=== PATIENT | male | born 1980 | race Caucasian/White ===

== ENCOUNTER 2016-05-09 17:01 | Observation (INO) | payer BC ==
[2016-05-09] MEDS ORDERED: SALINE 3% 15 ML NEB TX ONE (18:28)
[2016-05-09] MEDS ORDERED: TUSSIONEX PENNKINETIC SUSP PO PRN (18:47)
[2016-05-09] MEDS ORDERED: RESTORIL CAP 30 MG PO PRN (18:47)
[2016-05-09] MEDS: NS 1/2 1000 ML IV 1,000 ML IV SCH (19:30)
[2016-05-09 19:33] LABS: BASOPHILS # (AUTO) 0.1 X10^3/uL (0.0-0.1); BASOPHILS % (AUTO) 0.4 % (0.2-1.0); EOSINOPHILS % (AUTO) 0.3 % (0.9-2.9); HEMATOCRIT 40.9 % (42.0-54.0); HEMOGLOBIN 13.8 g/dL (13.5-18.0); LYMPHOCYTES # (AUTO) 2.4 X10^3/uL (1.3-2.9); LYMPHOCYTES % (AUTO) 14.7 % (21.0-51.0); MEAN CORPUSCULAR HEMOGLOBIN 29.7 pg (27.0-34.0); MEAN CORPUSCULAR HGB CONC 33.7 g/dL (33.0-35.0); MEAN CORPUSCULAR VOLUME 87.9 fL (80.0-100.0); MEAN PLATELET VOLUME 8.1 fL (7.4-11.0); MONOCYTES # (AUTO) 1.3 x10^3/uL (0.3-0.8); NEUTROPHILS # (AUTO) 12.3 x10^3/uL (2.2-4.8); NEUTROPHILS % (AUTO) 76.6 % (42.0-75.0); PLATELET COUNT 193 X10^3/uL (150.0-450.0); RED BLOOD COUNT 4.65 X10^6/uL (4.7-6.0); RED CELL DISTRIBUTION WIDTH 13.1 % (11.6-16.5); WHITE BLOOD COUNT 16.1 X10^3/uL (3.6-10.0)
[2016-05-09] MEDS ORDERED: NS 1/2 1000 ML IV 1,000 ML IV ONE ×2 (19:33→19:49)
[2016-05-09 19:40] LABS: ALANINE AMINOTRANSFERASE 62 Units/L (12-78); ALBUMIN 3.5 g/dL (3.4-5.0); ALKALINE PHOSPHATASE 63 Units/L (46-116); ASPARTATE AMINO TRANSFERASE 18 Units/L (15-37); BLOOD UREA NITROGEN 12 mg/dL (7-18); CALCIUM 8.6 mg/dL (8.5-10.1); CARBON DIOXIDE 25.9 mmol/L (21-32); CHLORIDE 105 mmol/L (98-107); COR NA(FOR HYPERGLY) 142 mmol/L (136-145); CREATININE 1.07 mg/dL (0.70-1.30); GLUCOSE 215 mg/dL (65-99); SODIUM 139 mmol/L (136-145); TOTAL PROTEIN 7.1 g/dL (6.4-8.2); eGFR BLACK RACES > 60 (>60); eGFR NON BLACK RACES > 60 (>60)
[2016-05-09] MEDS: LEVAQUIN PREMIX IV 750 MG 750 MG/150 ML BAG IV SCH (19:52)
[2016-05-09] MEDS ORDERED: DUONEB 0.5 MG/3 MG ONE (20:21)
[2016-05-09] MEDS: DUONEB 0.5 MG/3 MG NEB SCH (20:24)
[2016-05-09] MEDS: ZOSYN VIAL 4.5 GM 4.5 GM in NS 100 ML IV + SPIKE MINIBAG* 100 ML IV SCH (21:30)
[2016-05-09] MEDS: ROBITUSSIN DM PO SCH (21:31)
[2016-05-09] MEDS: HUMULIN R SUBCUT PRN (21:40)
[2016-05-10] MEDS: ZOSYN VIAL 4.5 GM 4.5 GM in NS 100 ML IV + SPIKE MINIBAG* 100 ML IV SCH ×4 (00:42→21:02)
[2016-05-10] MEDS: ROBITUSSIN DM PO SCH ×5 (00:43→21:03)
[2016-05-10] MEDS: SNACK - Diabetic Appropriate PO SCH ×3 (00:43→21:04)
[2016-05-10] MEDS: DUONEB 0.5 MG/3 MG NEB SCH ×6 (01:39→20:24)
[2016-05-10] MEDS: HUMULIN R SUBCUT PRN ×4 (06:30→21:04)
--- NOTE | 2016-05-10 08:05 | DR.H&P ---
H&P - History & Physical for Day of: H&P Date: 05/09/16 - Chief Complaint Chief Complaint: right chest pain, sob, weakness, fever - Allergies Allergies/Adverse Reactions: Allergies Allergy/AdvReac Type Severity Reaction Status Date / Time No Known Drug Allergy Allergy Verified 10/31/13 14:57 - History of Present Illness History of Present Illness: PT IS 36 WM DIRECT ADMIT FROM DR GARCIA OFFICE WITH NEW ONSET DM AND RIGHT LUNG PNEUMONIA. PT HAS HAD FEVERS AND RIGHT CHEST AND UPPER BACK FOR SEVERAL DAYS, GRADUALLY WORSENED. PT HAS NO KNOWN PMH. PT HAD CXR TODAY REVEALING RIGHT BASILAR INFILTRATE. PT GLUCOSE IN OFFICE 282, A1C 9.4. PLAN TO ADMIT FOR IV HYDRATION, IV ATBX THERAPY, RESP THERAPY, DIABETIC CONTROL AND EDUCATION - Past Medical History Past Medical History: denies: GERD, Hypertension - Past Surgical History Surgical History: No History - Family History Family Medical History: Diabetes Mellitus - Social History Does patient currently use any type of tobacco product: No Have you used tobacco products in the last 12 months: No Type of Tobacco Use: None How many years tobacco product used: 20 Does any household member use tobacco: Yes Alcohol Use: Occasionally Drug Use: None - Review of Systems Constitutional: Fever, Chills, Weakness Eyes: No Symptoms Reported ENT: No Symptoms Reported Respiratory: Shortness of Breath, SOB with Excertion, Pleuritic Pain, Wheezing Cardiovascular: No Symptoms Reported Gastrointestinal: Vomiting Genitourinary: No Symptoms Reported Musculoskeletal: Back Pain Skin: No Symptoms Reported Neurological: No Symptoms Reported - Physical Exam Vital Signs: Temperature 98.4 F Pulse Rate [Left] 80 Pulse Rate 89 Respiratory Rate 22 Blood Pressure [Right Arm] 128/60 Blood Pressure 131/85 O2 Sat by Pulse Oximetry 96 Respiratory: RLL Diminished, RML Exp. Wheeze, RLL Exp. Wheeze, LML Exp. Wheeze Cardiovascular: Tachycardia : Normal Auscultation: Bowel Sounds: Normal Palpation: Normal Tenderness: Normal Skin: Normal Musculoskeletal: Back:Lumbar Affect: Anxious Speech Pattern: Clear, Appropriate - Assessment/Plan (1) Pneumonia Qualifiers: Pneumonia type: P Aspiration pneumonia type: A Laterality: right Lung location: lower lobe of lung Status: Acute Plan: PNEUMONIA PROTOCOL, IV ATBX, RESP THERAPY. BLOOD AND SPUTUM CULTURES, IV HYDRATION. REPEAT AM LABS, CXR 48HRS. ENCOURAGE ORAL HYDRATION AND EARLY AMBULATION (2) New onset type 2 diabetes mellitus Status: Acute Plan: [facility], [place] DIET, DIABETIC EDUCATION (3) Dehydration Status: Acute Plan: IV HYDRATION, REPEAT AM LABS
--- NOTE | 2016-05-10 08:10 | PCM.PROG ---
Progress Note - Progress Note for Day of Date: 05/10/16 - Subjective Subjective: CONTINUED CO RIGHT UPPER BACK PAIN, WORSE WITH DEEP BREATHING. "FEELS LIKE CRAP" - Past Medical Family Social History Past Med/Fam/Surg Hx: No changes since H&P Allergies: Allergies No Known Drug Allergy Allergy (Verified 10/31/13 14:57) - Review of Systems ROS: No change since H&P - Vital Signs and I&O's Vital Signs: Temperature 98.3 F Pulse Rate [Left] 85 Pulse Rate 89 Respiratory Rate 20 Blood Pressure [Right Arm] 133/78 Blood Pressure 131/85 O2 Sat by Pulse Oximetry 98 Intake and Output: Intake & Output 05/07/16 05/08/16 05/09/16 05/10/16 11:59 11:59 11:59 11:59 Intake Total 1520 Balance 1520 - Physical Exam Oriented: Normal Eyes: Normal Ear: Normal Nose: Normal Throat: Normal Respiratory: Diminished, Rhonchi Cardiovascular: Tachycardia : Normal Auscultation: Bowel Sounds: Normal Tenderness: Normal Skin: Normal Musculoskeletal: Back:Lumbar Affect: Anxious Speech Pattern: Clear, Appropriate - Laboratory and Diagnostics Result Diagrams: 05/09/16 19:10 05/09/16 19:10 Labs: 05/09/16 18:43 Sputum - Expectorated Sputum - Final Laboratory WBC 16.1 X10^3/uL (3.6-10.0) H 05/09/16 19:10 RBC 4.65 X10^6/uL (4.7-6.0) L 05/09/16 19:10 Hgb 13.8 g/dL (13.5-18.0) 05/09/16 19:10 Hct 40.9 % (42.0-54.0) L 05/09/16 19:10 MCV 87.9 fL (80.0-100.0) 05/09/16 19:10 MCH 29.7 pg (27.0-34.0) 05/09/16 19:10 MCHC 33.7 g/dL (33.0-35.0) 05/09/16 19:10 RDW 13.1 % (11.6-16.5) 05/09/16 19:10 Plt Count 193 X10^3/uL (150.0-450.0) 05/09/16 19:10 MPV 8.1 fL (7.4-11.0) 05/09/16 19:10 Neut % 76.6 % (42.0-75.0) H 05/09/16 19:10 Lymph % 14.7 % (21.0-51.0) L 05/09/16 19:10 [place] % 8.0 % (0.0-13.0) 05/09/16 19:10 Eos % 0.3 % (0.9-2.9) L 05/09/16 19:10 Baso % 0.4 % (0.2-1.0) 05/09/16 19:10 Neut # 12.3 x10^3/uL (2.2-4.8) H 05/09/16 19:10 Lymph # 2.4 X10^3/uL (1.3-2.9) 05/09/16 19:10 [place] # 1.3 x10^3/uL (0.3-0.8) H 05/09/16 19:10 Eos # 0.0 x10^3/uL (0.0-0.2) 05/09/16 19:10 Baso # 0.1 X10^3/uL (0.0-0.1) 05/09/16 19:10 Absolute Nucleated RBC 0.0 /100WBC 05/09/16 19:10 Sodium 139 mmol/L (136-145) 05/09/16 19:10 Corrected Sodium 142 mmol/L (136-145) 05/09/16 19:10 Potassium 4.0 mmol/L (3.5-5.1) 05/09/16 19:10 Chloride 105 mmol/L (98-107) 05/09/16 19:10 Carbon Dioxide 25.9 mmol/L (21-32) 05/09/16 19:10 BUN 12 mg/dL (7-18) 05/09/16 19:10 Creatinine 1.07 mg/dL (0.70-1.30) 05/09/16 19:10 Est GFR (MDRD) Af Amer > 60 (>60) 05/09/16 19:10 Est GFR (MDRD) Non-Af > 60 (>60) 05/09/16 19:10 Glucose 215 mg/dL (65-99) H 05/09/16 19:10 Calcium 8.6 mg/dL (8.5-10.1) 05/09/16 19:10 Corrected Calcium TNP 05/09/16 19:10 Total Bilirubin 1.00 mg/dL (0.2-1.0) 05/09/16 19:10 AST 18 Units/L (15-37) 05/09/16 19:10 ALT 62 Units/L (12-78) 05/09/16 19:10 Alkaline Phosphatase 63 Units/L (46-116) 05/09/16 19:10 Total Protein 7.1 g/dL (6.4-8.2) 05/09/16 19:10 Albumin 3.5 g/dL (3.4-5.0) 05/09/16 19:10 Globulin 3.6 g/dL (2.5-4.5) 05/09/16 19:10 Albumin/Globulin Ratio 1.0 Ratio (1.1-2.1) L 05/09/16 19:10 - Plan (1) Pneumonia Status: Acute Qualifiers: Pneumonia type: P Aspiration pneumonia type: A Laterality: right Lung location: lower lobe of lung Plan: PNEUMONIA PROTOCOL, IV ATBX, RESP THERAPY. BLOOD AND SPUTUM CULTURES COLLECTED, IV HYDRATION. REPEAT AM LABS, CXR Q AM. ENCOURAGE ORAL HYDRATION AND EARLY AMBULATION (2) New onset type 2 diabetes mellitus Status: Acute Plan: [facility], [place] DIET, DIABETIC EDUCATION. START METFORMIN 500 PO BID (3) Dehydration Status: Acute Plan: IV HYDRATION, REPEAT AM LABS (4) Pleurisy Status: Acute Plan: TORADOL 30 IV X 3 DOSE PRN
--- NOTE | 2016-05-10 08:20 | RAD ---
Examination: Chest x-ray. Clinical history: Pneumonia, cough, congestion. Technique: PA and lateral views of the chest were obtained. Comparison: 05/09/2016. Findings: The cardiac and mediastinal contours are within normal limits. No pneumothorax or pleural effusion is noted. There is a confluent opacity present in the right middle lobe, which is essentially stable when comp ared with the prior examination and is consistent with an area of pneumonia. No acute osseous abnormality is noted. Impression: 1. There is a confluent opacity present in the right middle lobe, which is essentially stable when c ompared with the prior examination and is consistent with an area of pneumonia. Reported By:
[2016-05-10 08:25] LABS: BASOPHILS # (AUTO) 0.1 X10^3/uL (0.0-0.1); BASOPHILS % (AUTO) 0.6 % (0.2-1.0); EOSINOPHILS # (AUTO) 0.1 x10^3/uL (0.0-0.2); EOSINOPHILS % (AUTO) 0.8 % (0.9-2.9); HEMATOCRIT 38.4 % (42.0-54.0); HEMOGLOBIN 13.3 g/dL (13.5-18.0); LYMPHOCYTES # (AUTO) 2.1 X10^3/uL (1.3-2.9); LYMPHOCYTES % (AUTO) 22.1 % (21.0-51.0); MEAN CORPUSCULAR HEMOGLOBIN 30.5 pg (27.0-34.0); MEAN CORPUSCULAR HGB CONC 34.5 g/dL (33.0-35.0); MEAN CORPUSCULAR VOLUME 88.3 fL (80.0-100.0); MEAN PLATELET VOLUME 7.6 fL (7.4-11.0); MONOCYTES # (AUTO) 0.8 x10^3/uL (0.3-0.8); MONOCYTES % (AUTO) 8.1 % (0.0-13.0); NEUTROPHILS # (AUTO) 6.3 x10^3/uL (2.2-4.8); NEUTROPHILS % (AUTO) 68.4 % (42.0-75.0); PLATELET COUNT 171 X10^3/uL (150.0-450.0); RED BLOOD COUNT 4.35 X10^6/uL (4.7-6.0); RED CELL DISTRIBUTION WIDTH 13.1 % (11.6-16.5); WHITE BLOOD COUNT 9.3 X10^3/uL (3.6-10.0)
[2016-05-10 08:37] LABS: ALANINE AMINOTRANSFERASE 51 Units/L (12-78); ALBUMIN 3.3 g/dL (3.4-5.0); ALKALINE PHOSPHATASE 58 Units/L (46-116); ASPARTATE AMINO TRANSFERASE 16 Units/L (15-37); BLOOD UREA NITROGEN 12 mg/dL (7-18); CALCIUM 8.4 mg/dL (8.5-10.1); CARBON DIOXIDE 28.7 mmol/L (21-32); CHLORIDE 106 mmol/L (98-107); COR NA(FOR HYPERGLY) 144 mmol/L (136-145); CREATININE 1.06 mg/dL (0.70-1.30); GLUCOSE 273 mg/dL (65-99); SODIUM 140 mmol/L (136-145); TOTAL PROTEIN 6.9 g/dL (6.4-8.2); eGFR BLACK RACES > 60 (>60); eGFR NON BLACK RACES > 60 (>60)
[2016-05-10] MEDS: NS 1/2 1000 ML IV 1,000 ML IV SCH ×3 (08:50→23:05)
[2016-05-10] MEDS: LEVAQUIN PREMIX IV 750 MG 750 MG/150 ML BAG IV SCH (08:50)
[2016-05-10] MEDS ORDERED: GLUCOPHAGE ONE (16:41)
[2016-05-10] MEDS: PRILOSEC PO SCH (16:45)
[2016-05-10] MEDS: GLUCOPHAGE PO SCH (16:46)
[2016-05-10] MEDS ORDERED: NS 1/2 1000 ML IV 1,000 ML IV ONE (20:54)
[2016-05-11] MEDS: DUONEB 0.5 MG/3 MG NEB SCH ×6 (00:36→20:51)
[2016-05-11] MEDS ORDERED: GLUCOPHAGE ONE ×2 (05:51→17:15)
[2016-05-11] MEDS: ZOSYN VIAL 4.5 GM 4.5 GM in NS 100 ML IV + SPIKE MINIBAG* 100 ML IV SCH ×3 (05:55→21:33)
[2016-05-11] MEDS: HUMULIN R SUBCUT PRN ×2 (05:57→13:04)
[2016-05-11] MEDS: GLUCOPHAGE PO SCH ×2 (06:00→17:41)
[2016-05-11 06:04] LABS: BASOPHILS % (AUTO) 0.6 % (0.2-1.0); EOSINOPHILS # (AUTO) 0.1 x10^3/uL (0.0-0.2); EOSINOPHILS % (AUTO) 1.4 % (0.9-2.9); HEMOGLOBIN 12.8 g/dL (13.5-18.0); LYMPHOCYTES % (AUTO) 25.8 % (21.0-51.0); MEAN CORPUSCULAR HGB CONC 33.7 g/dL (33.0-35.0); MEAN CORPUSCULAR VOLUME 88.9 fL (80.0-100.0); MEAN PLATELET VOLUME 7.9 fL (7.4-11.0); MONOCYTES # (AUTO) 0.6 x10^3/uL (0.3-0.8); MONOCYTES % (AUTO) 8.2 % (0.0-13.0); PLATELET COUNT 185 X10^3/uL (150.0-450.0); RED BLOOD COUNT 4.28 X10^6/uL (4.7-6.0); RED CELL DISTRIBUTION WIDTH 12.8 % (11.6-16.5); WHITE BLOOD COUNT 7.8 X10^3/uL (3.6-10.0)
[2016-05-11 07:28] LABS: ALANINE AMINOTRANSFERASE 47 Units/L (12-78); ALBUMIN 3.1 g/dL (3.4-5.0); ALKALINE PHOSPHATASE 51 Units/L (46-116); ASPARTATE AMINO TRANSFERASE 18 Units/L (15-37); BLOOD UREA NITROGEN 9 mg/dL (7-18); CALCIUM 8.4 mg/dL (8.5-10.1); CARBON DIOXIDE 23.6 mmol/L (21-32); CHLORIDE 105 mmol/L (98-107); COR CA(FOR HYPOALB) 9.1 mg/dL (8.5-10.1); COR NA(FOR HYPERGLY) 142 mmol/L (136-145); CREATININE 0.94 mg/dL (0.70-1.30); GLUCOSE 188 mg/dL (65-99); SODIUM 140 mmol/L (136-145); TOTAL PROTEIN 6.7 g/dL (6.4-8.2); eGFR BLACK RACES > 60 (>60); eGFR NON BLACK RACES > 60 (>60)
--- NOTE | 2016-05-11 08:05 | RAD ---
Chest, one view Indication: Pneumonia Comparison: 05/10/2016 Findings: Right middle lobe infiltrates demonstrate improvement. The left lung remains clear. No lar ge effusion or pneumothorax. Normal heart size. Impression: Improving right middle lobe pneumonia. Reported By:
[2016-05-11] MEDS: ROBITUSSIN DM PO SCH ×4 (09:01→21:35)
[2016-05-11] MEDS: LEVAQUIN PREMIX IV 750 MG 750 MG/150 ML BAG IV SCH (09:01)
[2016-05-11] MEDS: PRILOSEC PO SCH (09:01)
[2016-05-11] MEDS: TORADOL 15 MG VIAL IVP PRN (09:03)
[2016-05-11] MEDS ORDERED: NS 1/2 1000 ML IV 1,000 ML IV ONE (17:15)
[2016-05-11] MEDS: NS 1/2 1000 ML IV 1,000 ML IV SCH (17:41)
[2016-05-11] MEDS: SNACK - Diabetic Appropriate PO SCH ×2 (21:46)
[2016-05-12] MEDS: DUONEB 0.5 MG/3 MG NEB SCH ×7 (01:24→21:36)
[2016-05-12 05:21] LABS: BASOPHILS % (AUTO) 0.7 % (0.2-1.0); EOSINOPHILS # (AUTO) 0.1 x10^3/uL (0.0-0.2); EOSINOPHILS % (AUTO) 2.4 % (0.9-2.9); HEMOGLOBIN 13.1 g/dL (13.5-18.0); LYMPHOCYTES # (AUTO) 1.8 X10^3/uL (1.3-2.9); LYMPHOCYTES % (AUTO) 28.4 % (21.0-51.0); MEAN CORPUSCULAR HEMOGLOBIN 29.8 pg (27.0-34.0); MEAN CORPUSCULAR HGB CONC 33.7 g/dL (33.0-35.0); MEAN CORPUSCULAR VOLUME 88.5 fL (80.0-100.0); MEAN PLATELET VOLUME 7.6 fL (7.4-11.0); MONOCYTES # (AUTO) 0.6 x10^3/uL (0.3-0.8); NEUTROPHILS # (AUTO) 3.7 x10^3/uL (2.2-4.8); NEUTROPHILS % (AUTO) 59.5 % (42.0-75.0); PLATELET COUNT 192 X10^3/uL (150.0-450.0); RED CELL DISTRIBUTION WIDTH 12.9 % (11.6-16.5); WHITE BLOOD COUNT 6.2 X10^3/uL (3.6-10.0)
[2016-05-12 05:31] LABS: ALANINE AMINOTRANSFERASE 52 Units/L (12-78); ALBUMIN 3.1 g/dL (3.4-5.0); ALKALINE PHOSPHATASE 50 Units/L (46-116); ASPARTATE AMINO TRANSFERASE 30 Units/L (15-37); BLOOD UREA NITROGEN 9 mg/dL (7-18); CALCIUM 8.5 mg/dL (8.5-10.1); CARBON DIOXIDE 26.3 mmol/L (21-32); CHLORIDE 104 mmol/L (98-107); COR CA(FOR HYPOALB) 9.2 mg/dL (8.5-10.1); COR NA(FOR HYPERGLY) 141 mmol/L (136-145); CREATININE 0.92 mg/dL (0.70-1.30); GLUCOSE 162 mg/dL (65-99); SODIUM 140 mmol/L (136-145); TOTAL PROTEIN 6.7 g/dL (6.4-8.2); eGFR BLACK RACES > 60 (>60); eGFR NON BLACK RACES > 60 (>60)
[2016-05-12] MEDS ORDERED: GLUCOPHAGE ONE ×2 (05:51→16:46)
[2016-05-12] MEDS ORDERED: NS 1/2 1000 ML IV 1,000 ML IV ONE ×2 (05:52→14:18)
[2016-05-12] MEDS: ZOSYN VIAL 4.5 GM 4.5 GM in NS 100 ML IV + SPIKE MINIBAG* 100 ML IV SCH ×3 (05:56→21:00)
[2016-05-12] MEDS: NS 1/2 1000 ML IV 1,000 ML IV SCH ×2 (05:58→17:42)
[2016-05-12] MEDS: GLUCOPHAGE PO SCH ×2 (06:01→17:40)
[2016-05-12] MEDS: TORADOL 15 MG VIAL IVP PRN (06:27)
[2016-05-12] MEDS: PRILOSEC PO SCH (09:30)
[2016-05-12] MEDS: LEVAQUIN PREMIX IV 750 MG 750 MG/150 ML BAG IV SCH (09:30)
[2016-05-12] MEDS: ROBITUSSIN DM PO SCH ×4 (09:30→20:53)
[2016-05-12] MEDS ORDERED: AMARYL TAB 4 MG PO ONE (16:30)
[2016-05-12] MEDS: SNACK - Diabetic Appropriate PO SCH (20:54)
[2016-05-12 21:13] VITALS: BMI 33.5
[2016-05-13] MEDS: DUONEB 0.5 MG/3 MG NEB SCH ×4 (01:01→12:08)
[2016-05-13 05:39] LABS: BASOPHILS # (AUTO) 0.1 X10^3/uL (0.0-0.1); BASOPHILS % (AUTO) 0.9 % (0.2-1.0); EOSINOPHILS # (AUTO) 0.2 x10^3/uL (0.0-0.2); EOSINOPHILS % (AUTO) 3.2 % (0.9-2.9); HEMATOCRIT 39.4 % (42.0-54.0); HEMOGLOBIN 13.3 g/dL (13.5-18.0); LYMPHOCYTES # (AUTO) 2.1 X10^3/uL (1.3-2.9); LYMPHOCYTES % (AUTO) 33.6 % (21.0-51.0); MEAN CORPUSCULAR HEMOGLOBIN 29.8 pg (27.0-34.0); MEAN CORPUSCULAR HGB CONC 33.8 g/dL (33.0-35.0); MEAN CORPUSCULAR VOLUME 88.2 fL (80.0-100.0); MEAN PLATELET VOLUME 7.8 fL (7.4-11.0); MONOCYTES # (AUTO) 0.5 x10^3/uL (0.3-0.8); NEUTROPHILS # (AUTO) 3.5 x10^3/uL (2.2-4.8); NEUTROPHILS % (AUTO) 54.3 % (42.0-75.0); PLATELET COUNT 221 X10^3/uL (150.0-450.0); RED BLOOD COUNT 4.47 X10^6/uL (4.7-6.0); RED CELL DISTRIBUTION WIDTH 12.5 % (11.6-16.5); WHITE BLOOD COUNT 6.4 X10^3/uL (3.6-10.0)
[2016-05-13 05:47] LABS: ALANINE AMINOTRANSFERASE 75 Units/L (12-78); ALBUMIN 3.2 g/dL (3.4-5.0); ALKALINE PHOSPHATASE 51 Units/L (46-116); ASPARTATE AMINO TRANSFERASE 47 Units/L (15-37); BLOOD UREA NITROGEN 12 mg/dL (7-18); CALCIUM 8.6 mg/dL (8.5-10.1); CARBON DIOXIDE 23.7 mmol/L (21-32); CHLORIDE 106 mmol/L (98-107); COR CA(FOR HYPOALB) 9.2 mg/dL (8.5-10.1); COR NA(FOR HYPERGLY) 142 mmol/L (136-145); CREATININE 0.88 mg/dL (0.70-1.30); GLUCOSE 123 mg/dL (65-99); SODIUM 141 mmol/L (136-145); eGFR BLACK RACES > 60 (>60); eGFR NON BLACK RACES > 60 (>60)
[2016-05-13] MEDS ORDERED: GLUCOPHAGE ONE (05:53)
[2016-05-13] MEDS ORDERED: NS 1/2 1000 ML IV 1,000 ML IV ONE (05:54)
[2016-05-13] MEDS: NS 1/2 1000 ML IV 1,000 ML IV SCH ×2 (06:30→06:48)
[2016-05-13] MEDS: ZOSYN VIAL 4.5 GM 4.5 GM in NS 100 ML IV + SPIKE MINIBAG* 100 ML IV SCH ×2 (06:45→14:38)
[2016-05-13] MEDS: GLUCOPHAGE PO SCH (06:45)
[2016-05-13] MEDS: TORADOL 15 MG VIAL IVP PRN (06:50)
[2016-05-13] MEDS ORDERED: AMARYL TAB 4 MG PO SCH (07:00)
--- NOTE | 2016-05-13 07:12 | RAD ---
HISTORY: Follow up pneumonia Study: Chest two-view Comparison: May 11, 2016, May 10, 2016 Findings: The heart is within normal limits in size. The johnathon are normal. The lungs are well inflated and now clear. No pleural effusions are identified. The bony thorax is unremarkable. IMPRESSION: Lungs well inflated and now clear. Reported By:
[2016-05-13] MEDS: PRILOSEC PO SCH (09:18)
[2016-05-13] MEDS: LEVAQUIN PREMIX IV 750 MG 750 MG/150 ML BAG IV SCH ×2 (09:18→11:02)
[2016-05-13] MEDS: ROBITUSSIN DM PO SCH ×2 (09:19→14:38)
[2016-05-13 18:18] VITALS: BP 163/107
== END 2016-05-13 16:30 | disposition home or self-care (01) ==
LOC: OBS 17:01 → MED/SURG 05-10 16:41
PROVIDERS: ADMIT Internal Medicine; ATTEND Internal Medicine
DX: J16.8 Pneumonia due to other specified infectious organisms (principal); R07.89 Other chest pain; R06.02 Shortness of breath; R53.1 Weakness; R50.9 Fever, unspecified; E86.0 Dehydration; E11.65 Type 2 diabetes mellitus with hyperglycemia; R09.1 Pleurisy; D64.89 Other specified anemias; D72.828 Other elevated white blood cell count
CPT/HCPCS: 36415; 71010; 71020; 80053; 85025; 87040; 87070; 87205; 94640; 94760; A4222; G0378; J1815; J1956; J2543; J7620

== ENCOUNTER → 2016-05-09 | Outpatient (CLI) | payer BC ==
[2013-10-31 15:01] VITALS: BP 131/85
[~2016-05-09] MED LIST: NS 100 ML IV + SPIKE MINIBAG* 100 ML IV ONE; ROBITUSSIN DM ONE; TUSSIONEX PENNKINETIC SUSP ONE; ZOSYN VIAL 4.5 GM IV ONE
--- NOTE | 2016-05-09 14:10 | RAD ---
HISTORY: Cough, chest pain Study: Chest two-view Comparison: None Findings: The heart is within normal limits in size. The johnathon are normal. The lungs are well inflated. Infiltr ate is present in the right lung base suggestive of pneumonia. The remainder of the lung lau are clear. No pleural effusions are identified. IMPRESSION: Right basilar lung infiltrate consistent with pneumonia Reported By:
== END ==
LOC: RAD 13:22
PROVIDERS: ATTEND Nurse Practitioner Family
DX: R05 Cough (principal); R07.89 Other chest pain
CPT/HCPCS: 71020; J2543